=== PATIENT | female | born 1935 | race Caucasian/White ===

== ENCOUNTER → 2016-09-16 | Outpatient (CLI) | payer MEDICARE, OTHER | END | disposition home or self-care (01) | LOC: GMAL 11:24 | PROVIDERS: ATTEND Family Medicine | DX: E55.9 Vitamin D deficiency, unspecified (principal); E03.8 Other specified hypothyroidism ==

== ENCOUNTER → 2016-09-30 | Outpatient (CLI) | payer MEDICARE, OTHER ==
--- NOTE | 2016-10-01 10:59 | MAM ---
History: Well woman exam. Date of exam: 09/30/2016 Services provided: Bilateral full field digital screening mammography. CAD, the images were reviewed with R2 computer aided detection. FINDINGS: Glandular tissue is scattered glandular pattern with increased mammographic density. Comparison with 2011 study. No dominant mass, architectural distortion or clustered microcalcification. Intramammary lymph node right axillary tail, demonstrated secondary to better positioning. IMPRESSION: Benign exam Recommendation: Routine annual mammography BIRAD CATEGORY: 2 BENIGN Electronically signed by: Danitza Mehta MD 10/01/2016 10:57 AM CDT
== END | disposition home or self-care (01) ==
LOC: MAMMO 11:32
PROVIDERS: ATTEND Family Medicine
DX: Z12.31 Encounter for screening mammogram for malignant neoplasm of breast (principal)

== ENCOUNTER → 2017-03-16 | Outpatient (CLI) | payer MEDICARE, OTHER | END | disposition home or self-care (01) | LOC: GMAL 14:46 | PROVIDERS: ATTEND Family Medicine | DX: E55.9 Vitamin D deficiency, unspecified (principal); D51.3 Other dietary vitamin B12 deficiency anemia ==

== ENCOUNTER 2017-04-15 19:56 | Emergency (ER) | payer MEDICARE, OTHER ==
[2017-04-15] MEDS ORDERED: CHLORHEXIDINE GLUCONATE 4 % 15 ML UD TOP ONE (20:18)
[2017-04-15] MEDS ORDERED: TETANUS,DIPHTHERIA,PERTUSSIS 1 EA SYG IM ONE (20:54)
[2017-04-15] MEDS ORDERED: NEOMYCIN-BACITRACIN-POLYMYXIN 0.9 GM UD TOP ONE (20:54)
[2017-04-15] MEDS ORDERED: LIDOCAINE 1% 10 ML VIAL INJ ONE (20:54)
--- NOTE | 2017-04-15 21:12 | ED.PDOC ---
History of Present Illness - General Chief Complaint: Laceration Stated Complaint: finger laceration Time Seen by Provider: 04/15/17 20:53 Source: patient, RN notes reviewed, Vital Signs reviewed Exam Limitations: no limitations - History of Present Illness Initial Comments: Patient presents to the ER with c/o laceration to her left ring finger. She tripped and accidentally closed her finger in the cmm technician. No numbness or tingling. Timing/Duration: just prior to arrival Severity: moderate Location: hands Improving Factors: other - pressure Worsening Factors: nothing Associated Symptoms: denies symptoms Allergies/Adverse Reactions: Allergies other Allergy (Intermediate, Uncoded 04/15/17 20:34) to all pain medications: severe N/V with them Home Medications: Ambulatory Orders Acid Controller 06/25/12 Estradiol-Norgestimate [Prefest] 1 tab PO DAILY 06/25/12 Multiple Vitamins W/ Minerals [One Daily For Women] 1 tab PO DAILY 06/25/12 One Daily For Women 1 tab PO DAILY 06/25/12 Solifenacin [Vesicare] 5 mg PO DAILY 06/25/12 Ciprofloxacin HCl [Cipro] 250 mg PO DAILY #0 tab 06/30/12 HYDROcodone 5MG/APAP 325MG [[place] 5/325] 1 ea PO Q6H PRN #0 tab 06/30/12 Promethazine HCl [Phenergan] 12.5 mg PO Q6H PRN #0 tab 06/30/12 Review of Systems - Review of Systems Constitutional: States: no symptoms reported Respiratory: States: no symptoms reported Cardiology: States: no symptoms reported Musculoskeletal: States: no symptoms reported Skin: States: see HPI Neurological: States: no symptoms reported. Denies: numbness, paresthesia, tingling All other Systems: No Change from Baseline Past Medical History (General) - Patient Medical History Hx Stroke: No Hx Asthma: No Hx of COPD: No Hx Cardiac Disorders: No Hx Congestive Heart Failure: No Hx Hypertension: No Hx Thyroid Disease: No Hx Diabetes: No Hx Gastroesophageal Reflux: No Hx Cancer: No Hx MRSA: No Surgical History: Hysterectomy, other - Vaccination History Hx Tetanus, Diphtheria Vaccination: No - unsure Hx Influenza Vaccination: Yes Hx Pneumococcal Vaccination: Yes - Social History Hx Tobacco Use: No Hx Chewing Tobacco Use: No Hx Alcohol Use: Yes - occ Hx Substance Use: No Hx Substance Use Treatment: No Hx Depression: No Hx Physical Abuse: No Hx Emotional Abuse: No Hx Suspected Abuse: No Family Medical History - Family History Mother Family History: No Known Physical Exam - Physical Exam General Appearance: Alert, Comfortable, No apparent distress, Well Developed, Well Groomed, Well Hydrated, Well Nourished Respiratory: no respiratory distress Neurologic: no motor/sensory deficits, alert, normal mood/affect, oriented x 3 Skin Exam: warm/dry, normal color Skin Problem Location: upper extremities - Left Ring finger - volar aspect distal phalynx Skin Character: linear - L shaped laceration across volar DIP joint and down medial aspect to finger tip. 2X3 cm. Distal sensation intact. Brisk capillary refill. Comments: Vital Signs 04/15/17 20:35 Temperature 98.3 F Pulse Rate [ 70 left] Respiratory 18 Rate Blood Pressure 158/88 [left] O2 Sat by Pulse 98 Oximetry Progress - EKG/XRAY/CT XRAY: Ring Finger: no fracture Procedures - Laceration/Wound Repair Left Distal Volar Finger Wound Length (cm): 5 - L ring finger Wound's Depth, Shape: superficial, linear - L shaped 2X3cm Betadine Prep?: Yes Anesthesia: 1% Lidocaine Volume Anesthetic (cc's): 5 Wound Debrided: minimal Wound Repaired With: sutures Suture Size/Type: 4:0, prolene Number of Sutures: 8 Layer Closure?: No Sterile Dressing Applied?: Yes Splint Applied?: No Sling Applied?: No Departure - Departure Clinical Impression: Laceration of left ring finger w/o foreign body w/o damage to nail Qualifiers: Encounter type: initial encounter Qualified Code(s): S61.215A - Laceration without foreign body of left ring finger without damage to nail, initial encounter Time of Disposition: 21:57 Disposition: Discharge to Home or Self Care Condition: Good Departure Forms: ED Discharge - Pt. Copy, Patient Portal Self Enrollment Instructions: DI for Laceration Repair, DI for Laceration Repair -- Simple Diet: resume usual diet Activity: increase activity as tolerated Referrals: Dewayne Carl III, MD [Primary Care Provider] - 1-2 Weeks Home Medications: Ambulatory Orders Acid Controller 06/25/12 Estradiol-Norgestimate [Prefest] 1 tab PO DAILY 06/25/12 Multiple Vitamins W/ Minerals [One Daily For Women] 1 tab PO DAILY 06/25/12 One Daily For Women 1 tab PO DAILY 06/25/12 Solifenacin [Vesicare] 5 mg PO DAILY 06/25/12 Ciprofloxacin HCl [Cipro] 250 mg PO DAILY #0 tab 06/30/12 HYDROcodone 5MG/APAP 325MG [[place] 5/325] 1 ea PO Q6H PRN #0 tab 06/30/12 Promethazine HCl [Phenergan] 12.5 mg PO Q6H PRN #0 tab 06/30/12 Additional Instructions: Suture removal in 7-10 days Keep clean and dry Apply antibiotic ointment twice daily
[2017-04-15 21:28] VITALS: O2SAT 97
[2017-04-15] MEDS ORDERED: ACETAMINOPHEN 500 MG TAB ONE (22:11)
[2017-04-15 22:19] VITALS: BP 126/82; TEMP 97.9
--- NOTE | 2017-04-15 22:19 | RAD ---
EXAM DESCRIPTION: Fingers,Left CLINICAL HISTORY: closed in inspector line door/laceration COMPARISON: None. FINDINGS: No acute fracture or dislocation of the fourth digit. Soft tissue injury identified at the distal aspect of the fourth finger. No radiopaque foreign bodies. Osteopenia. IMPRESSION: 1. No acute fracture or dislocation. Electronically signed by: Rohan Castañeda 04/15/2017 10:18 PM CDT
[2017-04-15] MEDS ORDERED: ACETAMINOPHEN 500 MG TAB PO ONE ×2 (22:20→22:21)
== END 2017-04-15 22:26 | disposition home or self-care (01) ==
LOC: ER 19:56
DX: S61.215A Laceration without foreign body of left ring finger without damage to nail, initial encounter (principal); Z23 Encounter for immunization; Z79.899 Other long term (current) drug therapy

== ENCOUNTER → 2017-04-23 | Outpatient (CLI) | payer MEDICARE, OTHER ==
--- NOTE | 2017-04-24 00:40 | MRI ---
EXAM DATE: 04/23/2017 10:05 AM [facility]. PROCEDURE: MR BRAIN WITHOUT IV CONTRAST. INDICATION: MEMORY LOSS. COMPARISON: None. TECHNIQUE: Multiplanar multisequence images of the brain were acquired without the administration of intravenous contrast. FINDINGS: No acute infarct or intracranial hemorrhage. No mass, mass effect, or midline shift. Normal midline structures including the pituitary, corpus callosum, and cerebellar tonsils. Minimal scattered subcortical, deep, and periventricular T-2/flair hyperintensities compatible with mild chronic microvascular angiopathy. No hydrocephalus. Mild generalized brain volume loss. Internal carotid and vertebrobasilar flow voids are identified. Unremarkable orbits, paranasal sinuses, mastoid air cells, and calvarium. IMPRESSION: No acute intracranial abnormality. Mild generalized brain volume loss with mild changes of chronic microvascular angiopathy. Electronically signed by: Mika Gordon MD 04/24/2017 12:38 AM [facility]
== END | disposition home or self-care (01) ==
LOC: MRI 12:28
DX: R41.3 Other amnesia (principal)

== ENCOUNTER → 2017-07-07 | Outpatient (CLI) | payer MEDICARE, OTHER | END | disposition home or self-care (01) | LOC: GMAL 14:16 | PROVIDERS: ATTEND Family Medicine | DX: N39.0 Urinary tract infection, site not specified (principal) ==

== ENCOUNTER → 2017-12-25 | Outpatient (CLI) | payer MEDICARE, OTHER ==
--- NOTE | 2017-12-25 12:12 | US ---
EXAM DESCRIPTION: Gall Bladder CLINICAL HISTORY: ABDOMINAL PAIN COMPARISON: None Available. TECHNIQUE: Right upper quadrant ultrasound FINDINGS: Pancreas: Visualized portions of the pancreas are unremarkable. Bowel gas obscures some areas. Aorta/inferior vena cava: No aortic aneurysm. Normal inferior vena cava. Liver: The liver is homogeneous in texture with normal echogenicity of the hepatic parenchyma. No focal liver lesion or intrahepatic bile duct dilatation. No liver surface irregularity. Normal appearance of the portal vein and hepatic veins. Gallbladder: Gallbladder appears normal with no intraluminal stones or wall thickening. Common bile duct: Normal caliber measuring 5.1 mm. Right kidney: Renal length is 9.5 cm. Normal cortical echogenicity. Cortical thickness is normal. No hydronephrosis is seen. No renal mass or shadowing calculus. IMPRESSION: No diagnostic abnormality is identified on sonographic examination of the right upper quadrant. Electronically signed by: Orlin Saba MD 12/25/2017 12:11 PM CDT
== END ==
LOC: US 08:07
PROVIDERS: ATTEND Family Medicine
DX: R10.9 Unspecified abdominal pain (principal)

== ENCOUNTER → 2018-05-14 | Outpatient (CLI) | payer MEDICARE, OTHER ==
--- NOTE | 2018-05-17 15:06 | MAM ---
EXAM DESCRIPTION: 3D Screening BILATERAL : Digital Mammography. CLINICAL HISTORY: 83 years Female SCREENING . No complaints. No personal or family history of breast cancer. Childbirth. Postmenopausal 26 years. HRT less than 5 years ago.. Lifetime risk of developing breast cancer (Tyrer-Cuzick model)(%): 1.9. COMPARISON: 2-D screening digital bilateral mammography 09/30/2016. TECHNIQUE: Bilateral CC and MLO projection full-field images, digital tomosynthesis mammographic technique. Bilateral digital 2-D full-field MLO images. CAD not available for tomosynthesis or 2-D images. FINDINGS: The breast parenchymal density pattern is: Scattered areas of fibroglandular density. No skin thickening or nipple retraction. Bilateral axillary lymph nodes. Solitary coarse calcifications in the mid right breast. Bilateral vascular calcifications. Stable anterior circumscribed mass lateral left breast. No new focal, stellate mass or density, focal asymmetry , and no suspicious microcalcifications bilaterally. Stable mammograms compared to prior study. Taking into account, differences in mammographic technique. IMPRESSION: Benign exam. BIRAD CATEGORY: 2 BENIGN FINDINGS. RECOMMENDATIONS: FOLLOW UP: Routine digital bilateral mammographic screening, one year interval from April 2018. Written communication explaining the IMPRESSION and follow-up, will be mailed to the patient and referring health care provider. According to the [employer], yearly mammograms are recommended starting at age 40 and continuing as long as a woman is in good health. Any breast change noted on a breast self-exam should be reported promptly to the patient's healthcare provider. Breast MRI is recommended for women with an approximately 20-25% or greater lifetime risk of breast cancer, including women with a strong family history of breast or ovarian cancer and women who have been treated for Hodgkin's disease. A negative mammographic report should not delay tissue diagnosis in patients with significant clinical history or physical findings. Extremely dense breast tissue limits the sensitivity of digital mammography. Electronically signed by: Nicholas Edward MD 05/17/2018 3:05 PM HOME ATTENDANT
== END ==
LOC: MAMMO 11:00
PROVIDERS: ATTEND Family Medicine
DX: Z12.31 Encounter for screening mammogram for malignant neoplasm of breast (principal)

== ENCOUNTER 2018-10-27 03:37 | Emergency (ER) | payer MEDICARE, OTHER ==
[2018-10-27] MEDS ORDERED: NITROGLYCERIN 0.4 MG 25 EA TAB SL ONE ×2 (03:41→03:45)
[2018-10-27] MEDS ORDERED: ALUM & MAG HYDROX-SIMETHICONE 30 ML, LIDOCAINE VISCOUS 2% 15 ML PO ONE ×2 (04:04)
[2018-10-27] MEDS ORDERED: ALUM & MAG HYDROX-SIMETHICONE 30 ML UD ONE (04:06)
[2018-10-27] MEDS ORDERED: LIDOCAINE HCL 2% (MOUTH-THROAT) 15 ML UD ONE (04:06)
--- NOTE | 2018-10-27 04:09 | ED.PDOC ---
History of Present Illness - General Chief Complaint: Chest Pain/MO Stated Complaint: chest pain Time Seen by Provider: 10/27/18 03:55 Source: patient Exam Limitations: no limitations - History of Present Illness Initial Comments: Pt awoke at 0230 hrs today with L chest pain that radiated to her L arm. It was sharp without SOB or diaphoresis. Pt saw her doctor last week for same pain and w/u was normal. Pt has been having this pain intermittantly x 1 month. No hx of CAD, DM, or HTN. NTG did not help pain in ED. Note: pain relieved by GI slider Timing/Duration: 1-3 hours Severity/Quality: severe, sharp Location: other Chest Pain Radiation: arms - L Activities at Onset: sleep Improving Factors: other - sitting up out of bed Worsening Factors: other - deep breath Nitro Today/Relief: 0.4 mg x 1, no relief Aspirin Treatment Today: 325 mg x 1, provided at home Associated Symptoms: nausea/vomiting Allergies/Adverse Reactions: Allergies other Allergy (Intermediate, Uncoded 04/15/17 20:34) to all pain medications: severe N/V with them Home Medications: Ambulatory Orders Acid Controller 06/25/12 Estradiol-Norgestimate [Prefest] 1 tab PO DAILY 06/25/12 Multiple Vitamins W/ Minerals [One Daily For Women] 1 tab PO DAILY 06/25/12 One Daily For Women 1 tab PO DAILY 06/25/12 Solifenacin [Vesicare] 5 mg PO DAILY 06/25/12 Ciprofloxacin HCl [Cipro] 250 mg PO DAILY #0 tab 06/30/12 HYDROcodone 5MG/APAP 325MG [[place] 5/325] 1 ea PO Q6H PRN #0 tab 06/30/12 Promethazine HCl [Phenergan] 12.5 mg PO Q6H PRN #0 tab 06/30/12 Review of Systems - Review of Systems Constitutional: Denies: diaphoresis, weakness EENTM: States: no symptoms reported Respiratory: Denies: cough, short of breath Cardiology: States: chest pain. Denies: edema, syncope Gastrointestinal/Abdominal: States: nausea. Denies: abdominal pain, vomiting Genitourinary: States: no symptoms reported Musculoskeletal: States: no symptoms reported Skin: States: no symptoms reported Neurological: States: no symptoms reported Endocrine: States: no symptoms reported Hematologic/Lymphatic: States: no symptoms reported Past Medical History (General) - Patient Medical History Hx Seizures: No Hx Stroke: No Hx Dementia: No Hx Asthma: No Hx of COPD: No Hx Cardiac Disorders: No Hx Congestive Heart Failure: No Hx Pacemaker: No Hx Hypertension: No Hx Thyroid Disease: No Hx Diabetes: No Hx Gastroesophageal Reflux: No Hx Renal Disease: No Hx Cancer: No Hx of HIV: No Hx MRSA: No Surgical History: Hysterectomy, other - Vaccination History Hx Tetanus, Diphtheria Vaccination: Yes Hx Influenza Vaccination: Yes Hx Pneumococcal Vaccination: Yes Immunizations Up to Date: Yes - Social History Hx Tobacco Use: No Hx Chewing Tobacco Use: No Hx Alcohol Use: Yes - occ Hx Substance Use: No Hx Substance Use Treatment: No Hx Depression: No Feels Threatened In Home Enviroment: No Feels Threatened In a Relationship: No Hx Physical Abuse: No Hx Emotional Abuse: No Hx Suspected Abuse: No - Activities of Daily Living Hospice Agency (if applicable):: None - Female History Patient is a Female of Child Bearing Age (10 -59 yrs old): No Family Medical History - Family History Mother Family History: No Known Physical Exam - Physical Exam General Appearance: Alert, Anxious Eyes, Ears, Nose, Throat Exam: PERRL/EOMI, pharynx normal Neck: supple, normal inspection Respiratory: lungs clear, normal breath sounds Cardiovascular/Chest: normal peripheral pulses, regular rate, rhythm, no edema Gastrointestinal/Abdominal: normal bowel sounds, non tender, soft Extremity: normal range of motion, non-tender, normal inspection Neurologic: alert, normal mood/affect, oriented x 3 Skin Exam: normal color, warm/dry Lymphatic: no adenopathy Progress - EKG/XRAY/CT EKG: Sinus, no ST T wave changes Comments: 1st degree AV BLOCK, occ. PVC's; rate 60, MN 216, QRS 106 Departure - Departure Clinical Impression: Esophagitis Chest pain Qualifiers: Chest pain type: other chest pain Qualified Code(s): R07.89 - Other chest pain; R07.8 - Other chest pain Disposition: Discharge to Home or Self Care Departure Forms: ED Discharge - Pt. Copy, Patient Portal Self Enrollment Instructions: DI for Chest Pain Referrals: Dewayne Carl III, MD [Primary Care Provider] - 1-2 Weeks Home Medications: Ambulatory Orders Acid Controller 06/25/12 Estradiol-Norgestimate [Prefest] 1 tab PO DAILY 06/25/12 Multiple Vitamins W/ Minerals [One Daily For Women] 1 tab PO DAILY 06/25/12 One Daily For Women 1 tab PO DAILY 06/25/12 Solifenacin [Vesicare] 5 mg PO DAILY 06/25/12 Ciprofloxacin HCl [Cipro] 250 mg PO DAILY #0 tab 06/30/12 HYDROcodone 5MG/APAP 325MG [[place] 5/325] 1 ea PO Q6H PRN #0 tab 06/30/12 Promethazine HCl [Phenergan] 12.5 mg PO Q6H PRN #0 tab 06/30/12
--- NOTE | 2018-10-27 04:28 | RAD ---
CHEST 10/27/2018 CLINICAL HISTORY: Chest pain. COMPARISON: None. TECHNIQUE: AP chest. FINDINGS: Upper normal heart size. Pulmonary vascularity. Lungs and pleural spaces are clear. Lungs are hyperinflated. No pneumothorax Unremarkable soft tissues and bones. IMPRESSION: 1. No acute chest disease. Electronically signed by: Jacqueline Chaidez DO 10/27/2018 4:25 AM CDT
[2018-10-27 06:16] VITALS: TEMP 98.2
[2018-10-27 06:18] VITALS: BP 143/77
[2018-10-27 06:21] VITALS: O2SAT 95
== END 2018-10-27 05:30 | disposition home or self-care (01) ==
LOC: ER 03:37
DX: R07.89 Other chest pain (principal); K20.9 Esophagitis, unspecified; I44.0 Atrioventricular block, first degree; I49.3 Ventricular premature depolarization; Z79.899 Other long term (current) drug therapy; Z88.6 Allergy status to analgesic agent

== ENCOUNTER → 2019-05-24 | Outpatient (CLI) | payer MEDICARE, OTHER | LOC: GMAJS 10:21 | PROVIDERS: ATTEND Physician Assistant | DX: I10 Essential (primary) hypertension (principal); R35.0 Frequency of micturition ==

== ENCOUNTER 2019-08-01 10:54 | Emergency (ER) | payer MEDICARE, OTHER ==
[2019-08-01 11:09] VITALS: O2SAT 97
--- NOTE | 2019-08-01 11:34 | CT ---
EXAM DESCRIPTION: Head CLINICAL HISTORY: acute rue weakness COMPARISON: None available TECHNIQUE: Noncontrast head CT was performed with routine protocol. FINDINGS: Normal amaya-white matter differentiation. Ventricles and sulci are normal for age. No high density hemorrhage, focal edema or shift of the midline. No sulcal effacement. Normal orbital contents. Basilar cisterns appear clear. Intact calvarium with no fracture or lytic lesion. Normal aeration of tympanic cavities and mastoid air cells. No fluid levels in the paranasal sinuses. Skull base appears intact. Symmetrical internal auditory canals. IMPRESSION: No acute intracranial pathologic process. This exam was performed according to our departmental dose-optimization program, which includes automated exposure control, adjustment of the mA and/or kV according to patient size and/or use of iterative reconstruction technique. Total DLP equals 859.97 mGycm. Electronically signed by: Orlin Saba MD 08/01/2019 11:33 AM [employer] VICE PRESIDENT [employer] (EX )
--- NOTE | 2019-08-01 11:36 | RAD ---
EXAM DESCRIPTION: Chest,1 View CLINICAL HISTORY: 84 years Female, acute rue weakness COMPARISON: Previous chest x-ray October 27, 2018 TECHNIQUE: AP portable chest. FINDINGS: Heart size is large with normal pulmonary vascularity. Density behind the heart may be tortuous descending aorta, hiatal hernia or both. Lateral view may be helpful. No consolidating infiltrate. No pulmonary mass or worrisome nodule. No pneumothorax or pleural effusion. Bones are unremarkable. IMPRESSION: Large heart without congestive failure. Electronically signed by: Orlin Saba MD 08/01/2019 11:34 AM NETWORK CONTRACT MANAGER
[2019-08-01] MEDS ORDERED: ASPIRIN TABLET 325 MG TAB PO ONE (11:41)
[2019-08-01] MEDS ORDERED: CLOPIDOGREL 75 MG TAB PO ONE (12:22)
--- NOTE | 2019-08-01 12:25 | ED.PDOC ---
History of Present Illness - General Chief Complaint: Neuro Symptoms/Deficits Stated Complaint: general weakness with right arm numbness Time Seen by Provider: 08/01/19 11:04 Source: patient Exam Limitations: no limitations - History of Present Illness Initial Comments: The patient is an 84-year-old female presented emergency room secondary to weakness and decreased sensation to the right upper extremity that started about an hour prior to arrival. By the time she arrives here she reports that the sensation is largely returned but she is still having a little bit of tingling and some weakness. She is able to raise it up off of the bed. She is able to move it better when she is not paying attention to it. The patient is obviously extremely anxious. No other neurological deficits. No problems talking, swallowing or walking. Strength appears preserved in the right lower extremity. No vision changes. No syncope. No falls. The patient has been under increased stress due to financial and business reasons lately. Timing/Duration: 1 hour Severity: moderate Improving Factors: nothing Worsening Factors: nothing Associated Symptoms: malaise, weakness Allergies/Adverse Reactions: Allergies other Allergy (Intermediate, Uncoded 04/15/17 20:34) to all pain medications: severe N/V with them Home Medications: Ambulatory Orders Acid Controller 06/25/12 Estradiol-Norgestimate [Prefest] 1 tab PO DAILY 06/25/12 Multiple Vitamins W/ Minerals [One Daily For Women] 1 tab PO DAILY 06/25/12 One Daily For Women 1 tab PO DAILY 06/25/12 Solifenacin [Vesicare] 5 mg PO DAILY 06/25/12 Ciprofloxacin HCl [Cipro] 250 mg PO DAILY #0 tab 06/30/12 HYDROcodone 5MG/APAP 325MG [[place] 5/325] 1 ea PO Q6H PRN #0 tab 06/30/12 Promethazine HCl [Phenergan] 12.5 mg PO Q6H PRN #0 tab 06/30/12 Aspirin (Buffered) 325 mg [Bufferin 325 mg] 1 ea PO QD #30 tab 08/01/19 Clopidogrel Bisulfate [Plavix] 75 mg PO QD #14 tab 08/01/19 Review of Systems - Review of Systems Constitutional: States: malaise EENTM: States: no symptoms reported Respiratory: States: no symptoms reported Cardiology: States: no symptoms reported Gastrointestinal/Abdominal: States: no symptoms reported Genitourinary: States: no symptoms reported Musculoskeletal: States: no symptoms reported Skin: States: no symptoms reported Neurological: States: headache, numbness, weakness Endocrine: States: no symptoms reported Hematologic/Lymphatic: States: no symptoms reported All other Systems: No Change from Baseline Past Medical History (General) - Patient Medical History Hx Seizures: No Hx Stroke: No Hx Dementia: No Hx Asthma: No Hx of COPD: No Hx Cardiac Disorders: No Hx Congestive Heart Failure: No Hx Pacemaker: No Hx Hypertension: No Hx Thyroid Disease: No Hx Diabetes: No Hx Gastroesophageal Reflux: No Hx Renal Disease: No Hx Cancer: No Hx of HIV: No Hx Hepatitis C: No Hx MRSA: No Surgical History: Hysterectomy - Vaccination History Hx Tetanus, Diphtheria Vaccination: No Hx Influenza Vaccination: Yes Hx Pneumococcal Vaccination: Yes Immunizations Up to Date: No - Social History Hx Tobacco Use: No Hx Chewing Tobacco Use: No Hx Alcohol Use: Yes - occ Hx Substance Use: No Hx Substance Use Treatment: No Hx Depression: No Hx Physical Abuse: No Hx Emotional Abuse: No Hx Suspected Abuse: No - Female History Patient is a Female of Child Bearing Age (10 -59 yrs old): No Family Medical History - Family History Mother Family History: No Known Physical Exam - Physical Exam General Appearance: Alert, Anxious Eye Exam: bilateral normal Ears, Nose, Throat: hearing grossly normal, normal ENT inspection, normal pharynx Neck: full range of motion, supple Respiratory: lungs clear, normal breath sounds, no respiratory distress, no accessory muscle use Cardiovascular/Chest: normal peripheral pulses, regular rate, rhythm, no edema Peripheral Pulses: radial,right: 2+, radial,left: 2+, dorsalis pedis,right: 2+, dorsalis pedis,left: 2+ Gastrointestinal/Abdominal: non tender, soft Rectal Exam: deferred Back Exam: no CVA tenderness, no vertebral tenderness Extremity: normal range of motion, non-tender, pedal edema - Trace, other - Initially there is 4+ strength to the right upper extremity. It is tremulous. She reports normal sensation however there is some tingling. At the time of discharge her splint actually appears normal when she is distracted. 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 Head CT showed no acute intracranial pathology. See report for details. Chest x-ray shows mild cardiomegaly but no other acute pathology. 08/01/19 11:15 EKG STAT Normal sinus rhythm at 65 bpm. Mild left axis deviation. Poor R wave progression anterior leads. No definitive ST segment or T wave changes indicative of acute ischemia. There is a first-degree AV block. Laboratory Results - last 24 hr 08/01/19 08/01/19 08/01/19 11:30 11:30 11:30 WBC 4.8 RBC 4.51 Hgb 13.1 Hct 39.4 MCV 87.4 MCH 29.1 MCHC 33.3 RDW 13.9 Plt Count 184 MPV 7.4 Absolute Neuts (auto) 2.90 Absolute Lymphs (auto) 1.30 Absolute Monos (auto) 0.50 Absolute Eos (auto) 0.10 Absolute Basos (auto) 0.00 Neutrophils % 60.2 Lymphocytes % 27.4 Monocytes % 10.1 H Eosinophils % 1.3 Basophils % 1.0 PT 10.0 INR 1.01 PTT (SP) 23.4 D-Dimer, Quantitative 380 Sodium 139 Potassium 4.3 Chloride 104 Carbon Dioxide 27 Anion Gap 12.3 BUN 12 Creatinine 0.68 BUN/Creatinine Ratio 17.6 Random Glucose 107 H Serum Osmolality 277.8 Calcium 9.8 Magnesium 2.2 Total Bilirubin 0.5 AST 27 ALT 18 Alkaline Phosphatase 69 Creatine Kinase 127 CK-MB (CK-2) 3.3 CK-MB (CK-2) % Not Reportable Troponin I < 0.02 B-Natriuretic Peptide 34.1 Serum Total Protein 7.0 Albumin 4.3 Globulin 2.7 Albumin/Globulin Ratio 1.6 TSH 5.14 Urine Color Urine Appearance Urine pH Ur Specific Spur Urine Protein Urine Glucose (UA) Urine Ketones Urine Blood Urine Nitrite Urine Bilirubin Urine Urobilinogen Ur Leukocyte Esterase Urine RBC Urine WBC Ur Epithelial Cells Urine Bacteria 08/01/19 11:50 WBC RBC Hgb Hct MCV MCH MCHC RDW Plt Count MPV Absolute Neuts (auto) Absolute Lymphs (auto) Absolute Monos (auto) Absolute Eos (auto) Absolute Basos (auto) Neutrophils % Lymphocytes % Monocytes % Eosinophils % Basophils % PT INR PTT (SP) D-Dimer, Quantitative Sodium Potassium Chloride Carbon Dioxide Anion Gap BUN Creatinine BUN/Creatinine Ratio Random Glucose Serum Osmolality Calcium Magnesium Total Bilirubin AST ALT Alkaline Phosphatase Creatine Kinase CK-MB (CK-2) CK-MB (CK-2) % Troponin I B-Natriuretic Peptide Serum Total Protein Albumin Globulin Albumin/Globulin Ratio TSH Urine Color Yellow Urine Appearance Clear Urine pH 7.5 Ur Specific Spur 1.015 Urine Protein Negative Urine Glucose (UA) Negative Urine Ketones Negative Urine Blood Negative Urine Nitrite Negative Urine Bilirubin Negative Urine Urobilinogen 0.2 Ur Leukocyte Esterase Negative Urine RBC 0-1 Urine WBC 0-1 Ur Epithelial Cells 1-3 Urine Bacteria Rare Assessment plan: The patient is a 84-year-old female presented to emergency room with right upper extremity weakness and tingling as well as mild decrease sensation. Symptoms have essentially resolved. The diagnosis is going to be a transient ischemic attack. The patient is going to be placed on aspirin and Plavix for at least the next weeks. I want her to follow back up with her primary care doctor at the end of this week. Recommendation has been made that the patient stay for monitoring over the next 24 hours. She is going to go home. She has signed out AGAINST MEDICAL ADVICE. ER warnings were given for any worsening. The patient does understand the risks. [email or web address] [email or web address] [id number] Progress - EKG/XRAY/CT CT Ordered: Yes Departure - Departure Clinical Impression: TIA (transient ischemic attack) Disposition: Discharge to Home or Self Care Condition: Fair Departure Forms: ED Discharge - Pt. Copy, Patient Portal Self Enrollment Instructions: DI for Stroke-Ischemic Diet: regular diet Activity: increase activity as tolerated Referrals: Dewayne Carl III, MD [Primary Care Provider] - 1-2 Days Prescriptions: Aspirin (Buffered) 325 mg [Bufferin 325 mg] 1 ea PO QD #30 tab Clopidogrel Bisulfate [Plavix] 75 mg PO QD #14 tab Home Medications: Ambulatory Orders Acid Controller 06/25/12 Estradiol-Norgestimate [Prefest] 1 tab PO DAILY 06/25/12 Multiple Vitamins W/ Minerals [One Daily For Women] 1 tab PO DAILY 06/25/12 One Daily For Women 1 tab PO DAILY 06/25/12 Solifenacin [Vesicare] 5 mg PO DAILY 06/25/12 Ciprofloxacin HCl [Cipro] 250 mg PO DAILY #0 tab 06/30/12 HYDROcodone 5MG/APAP 325MG [[place] 5/325] 1 ea PO Q6H PRN #0 tab 06/30/12 Promethazine HCl [Phenergan] 12.5 mg PO Q6H PRN #0 tab 06/30/12 Aspirin (Buffered) 325 mg [Bufferin 325 mg] 1 ea PO QD #30 tab 08/01/19 Clopidogrel Bisulfate [Plavix] 75 mg PO QD #14 tab 08/01/19 Additional Instructions: The patient is a 84-year-old female presented to emergency room with right upper extremity weakness and tingling as well as mild decrease sensation. Symptoms have essentially resolved. The diagnosis is going to be a transient ischemic attack. The patient is going to be placed on aspirin and Plavix for at least the next weeks. I want her to follow back up with her primary care doctor at the end of this week. Recommendation has been made that the patient stay for monitoring over the next 24 hours. She is going to go home. She has signed out AGAINST MEDICAL ADVICE. ER warnings were given for any worsening. The patient does understand the risks. Additional work-up including echocardiography and carotid Dopplers can be done with her primary care doctor as an outpatient.
[2019-08-01 13:06] VITALS: BP 148/78; TEMP 97.9
== END 2019-08-01 13:02 | disposition left against medical advice (07) ==
LOC: ER 10:54
DX: G45.9 Transient cerebral ischemic attack, unspecified (principal); R53.81 Other malaise; Z53.29 Procedure and treatment not carried out because of patient's decision for other reasons; Z88.8 Allergy status to other drugs, medicaments and biological substances

== ENCOUNTER → 2019-10-06 | Outpatient (CLI) | payer MEDICARE, OTHER ==
--- NOTE | 2019-10-06 13:52 | CT ---
EXAM DESCRIPTION: CTA Neck: Computed Tomography. CLINICAL HISTORY: OCCLUSION AND STENOSIS OF BILAT. CAROTID ARTERIES COMPARISON: CT scan abdomen August 01. TECHNIQUE: Spiral, axial 2.5 x 2.5 mm scans through the neck soft tissues after bolus infusion of IV contrast. 2.0 mm sagittal and coronal reconstructions. HID MIP images 0.6 mm rotating axis 3D volume rendering images 0.6 mm rotating axis . Percentage of stenosis recorded will be based upon NASCET criteria. Total Exam DLP: 389 mGy-cm. This exam was performed according to our departmental CT dose-optimization program which includes automated exposure control, adjustment of the mA and/or kV according to patient size and/or use of iterative reconstruction technique; to reduce radiation dose to as low as reasonably achievable (ALARA). FINDINGS: Atherosclerotic calcifications of the aorta with intimal wall thickening in the arch. Common origin of the right innominate artery and left common carotid artery; the left CCA is in close is anterior to the origin of the left subclavian artery. No significant narrowing calcification or stenosis. The bifurcation in the proximal left ECA are unremarkable. Right common carotid artery originates from the medial proximal right innominate artery and is tortuous with a 360 curve, but no significant narrowing stenosis or calcification to the bifurcation. Minimal calcification at the bifurcation and the proximal right ECA is negative. Bilateral cervical ICA segments showing no significant findings and also the petrous, clinoid, and supraclinoid segments are essentially negative. Bilateral M1, and M2,segments of the MCAs are negative. Bilateral A1 and A2 segments of the DANDRE and the anterior communicating artery are patent. Bilateral vertebral arteries originate from the bilateral subclavian arteries with 180 degree curve of the proximal right vertebral artery abutting the right trachea. Posterior origination of the left vertebral artery with 180 degree curve abutting the medial left esophagus and minimal calcification of the vertebral artery at the origin. Symmetric calibers of the vertebral arteries in the bilateral vascular foramina of the cervical spine to the base of the skull. Bilateral PICA vessels proximally unremarkable. Junction to form the basilar artery through the right of midline. Left AICA vessel not well seen. Symmetric origination of the bilateral superior cerebellar vessels. Right posterior communicating artery from the right supraclinoid ICA which joins the A1 segment of the right posterior cerebral artery from the basilar artery. Left posterior communicating artery not visualized. No aneurysm, significant narrowing or stenosis, mass effect, or vasculitis in the anterior or posterior circulations. Diffuse spondylosis C3-4 down to C6-7 with canal and foraminal narrowing and disc space narrowing with endplate spurs. Arthrosis in the atlantoaxial joint. Bilateral apical pleural thickening with 3.5 mm groundglass nodule right apex. Evaluation of the upper mediastinum is limited due to density of contrast material. No effacement of the airway and no neck soft tissue abnormalities. IMPRESSION: 1. CTA of the neck showing no stenosis, significant narrowing, mass effect, aneurysm, or vasculitis in the anterior posterior circulations. Partial visualization of the [place]. Please see above findings. 2. Diffuse spondylosis in the cervical spine. 3. 3.5 mm ground glass pulmonary nodule within the upper lobe detected on incomplete chest CT. No routine follow-up imaging is recommended. These guidelines do not apply to immunocompromised patients and patients with cancer. Follow up in patients with significant comorbidities as clinically warranted. For lung cancer screening, adhere to Lung-RADS guidelines. Reference: Radiology. 2017; 284(1):228-43. Electronically signed by: Nicholas Edward MD 10/06/2019 1:51 PM CDT
== END ==
LOC: CT 09:00
PROVIDERS: ATTEND Family Medicine
DX: Z01.812 Encounter for preprocedural laboratory examination (principal); I70.0 Atherosclerosis of aorta; M47.892 Other spondylosis, cervical region; R91.1 Solitary pulmonary nodule; Z79.899 Other long term (current) drug therapy

== ENCOUNTER → 2019-11-02 | Outpatient (CLI) | payer MEDICARE, OTHER | LOC: GMAL 11:21 | PROVIDERS: ATTEND Family Medicine | DX: D51.3 Other dietary vitamin B12 deficiency anemia (principal); E03.9 Hypothyroidism, unspecified; E55.9 Vitamin D deficiency, unspecified; I10 Essential (primary) hypertension; Z79.899 Other long term (current) drug therapy ==

== ENCOUNTER → 2020-02-08 | Outpatient (CLI) | payer MEDICARE, OTHER | END | disposition home or self-care (01) | LOC: GMAL 15:00 | PROVIDERS: ATTEND Family Medicine | DX: I10 Essential (primary) hypertension (principal) ==

== ENCOUNTER → 2020-05-31 | Outpatient (CLI) | payer MEDICARE, OTHER | LOC: GMA CAST 14:16 | PROVIDERS: ATTEND Family Medicine Sports Medicine | DX: N30.00 Acute cystitis without hematuria (principal) ==